=== PATIENT | male | born 1995 | race Caucasian/White ===

== ENCOUNTER 2018-07-16 17:11 | Emergency (ER) | payer OTHER ==
[2018-07-16 17:44] VITALS: BP 132/72
--- NOTE | 2018-07-16 18:29 | RADIOLOGY REPORT (SQ) ---
EXAM DESCRIPTION: ELBOW LEFT OVER 2 VIEWS COMPLETED DATE/TIME: 07/16/2018 6:21 pm REASON FOR STUDY: left elbow injury COMPARISON: None. NUMBER OF VIEWS: Four views. TECHNIQUE: AP, lateral, and both oblique radiographic images acquired of the left elbow. LIMITATIONS: None. FINDINGS: MINERALIZATION: Normal. BONES: Cannot exclude a minimal nondisplaced fracture of the radial head. JOINT: Small joint effusion. SOFT TISSUES: No soft tissue swelling. No foreign body. OTHER: No other significant finding. IMPRESSION: Cannot exclude radial head fracture. There is a small joint effusion. TECHNICAL DOCUMENTATION: JOB ID: [id number] [employer]- All Rights Reserved Reading location - IP/workstation name: [email or web address]
--- NOTE | 2018-07-16 18:47 | ER Document Report ---
HPI - HPI Time Seen by Provider: 07/16/18 18:02 Pain Level: Denies Notes: Patient is a 23-year-old male presenting to the emergency department with complaints of left elbow pain. Patient reports he was seen at the [facility] yesterday and diagnosed with a complete radial head fracture. Patient states that the told him to wear a sling and do range of motion exercises. Patient states that he has increased pain since this occurred. Patient requesting reevaluation. - CONSTITUTIONAL Constitutional: DENIES: Fever, Chills - MUSCULOSKELETAL Musculoskeletal: REPORTS: Extremity pain - left elbow Past Medical History - General Information source: Patient - Social History Smoking Status: Never Smoker Frequency of alcohol use: None Drug Abuse: None Family History: Reviewed & Not Pertinent Patient has suicidal ideation: No Patient has homicidal ideation: No - Medical History Medical History: Negative Renal/ Medical History: Denies: Hx Peritoneal Dialysis Surgical Hx: Negative - Immunizations Immunizations up to date: Yes Vertical Provider Document - CONSTITUTIONAL Notes: PHYSICAL EXAMINATION: GENERAL: Well-appearing, well-nourished and in no acute distress. HEAD: Atraumatic, normocephalic. EYES: Pupils equal round extraocular movements intact, conjunctiva are normal. ENT: Nares patent NECK: Normal range of motion LUNGS: No respiratory distress Musculoskeletal: Normal range of motion to patient's left upper extremity, there is tenderness to palpation of the posterior end of the radius near the elbow. He has strong radial pulse and normal cap refill. Normal motor and sensation distal to injury. Mild swelling noted. NEUROLOGICAL: Normal speech, normal gait. PSYCH: Normal mood, normal affect. SKIN: Warm, Dry, normal turgor, no rashes or lesions noted. - INFECTION CONTROL TRAVEL OUTSIDE OF THE [place] IN LAST 30 DAYS: No Course - Re-evaluation Re-evalutation: X-ray shows possible radial head fracture. Patient will be placed in a long-arm posterior splint a sling and encouraged to follow-up with orthopedics. - Vital Signs Vital signs: Temp Pulse Resp BP Pulse Ox 98.4 F 49 L 18 132/72 H 98 07/16/18 17:43 07/16/18 17:43 07/16/18 17:43 07/16/18 17:43 07/16/18 17:43 Procedures - Immobilization Left arm Pre-Proc Neuro Vasc Exam: Normal Immobilizer type: Long arm posterior, Sling Performed by: PCT Post-Proc Neuro Vasc Exam: Normal Alignment checked and good: Yes Discharge - Discharge Clinical Impression: Left radial head fracture Qualifiers: Encounter type: initial encounter Fracture type: closed Fracture alignment: nondisplaced Qualified Code(s): S52.125A - Nondisplaced fracture of head of left radius, initial encounter for closed fracture Condition: Stable Disposition: HOME, SELF-CARE Additional Instructions: Fractured Radius The bone called the radius is fractured. This type of fracture is typically caused by falling onto the outstretched hand. The fracture is not serious, however, and should heal well with adequate protection. Your physician's evaluation shows the bone is in good position to heal. A cast or splint is used to protect the fracture. For the first few days after the injury, the arm should be elevated and ice packed. Healing takes from three to eight weeks, depending on the age of the patient and the seriousness of the fracture. Your doctor has explained the treatment plan. It's important that you follow up as instructed to prevent complications. Call the doctor or return at once if severe pain or swelling occur, or if the hand becomes numb, swollen, or discolored. Our x-ray here today shows a possible fracture at the radial head with a small joint effusion. Management of a radial head fracture includes the following: During the ACUTE phase a long-arm posterior splint is indicated with the elbow in a 90 degree flexion. Ice and elevate for the first 48 hours. Began forearm rotation as soon as pain permits. Take ibuprofen 600 mg every 6 hours or ib uprofen 800 mg every 8 hours for pain and inflammation. DEFINITIVE treatment includes using a sling for comfort only for at least 1 week. It may take up to 8 to 10 weeks to restore full mobility. It is recommended that you follow-up with orthopedics every 2 weeks to assess your progress towards the return of normal elbow motion. You want to be doing active range of motion exercises to include forearm rotation and flexion/extension. Referrals: SJ WATERMAN MD [ACTIVE STAFF] - Follow up as needed
== END 2018-07-16 18:56 | disposition home or self-care (01) ==
LOC: ER 17:11
PROC: 2W39X1Z Immobilization of Left Upper Extremity using Splint (ICD-10-PCS; principal; 2018-07-16)
DX: S52.125A Nondisplaced fracture of head of left radius, initial encounter for closed fracture (principal); M25.522 Pain in left elbow; X58.XXXA Exposure to other specified factors, initial encounter
CPT/HCPCS: 99283